=== PATIENT | male | born 1985 | race Caucasian/White ===

== ENCOUNTER 2023-06-15 00:08 | Emergency (ER) | payer SELFPAY ==
[~2023-06-15] VITALS: Ht 172.7 cm; Wt 82.0 kg
[2023-06-15 00:15] VITALS: O2SAT 98
[2023-06-15] MEDS: METOCLOPRAMIDE HCL 10MG/2ML VIAL IV STA (00:33)
[2023-06-15] MEDS: PANTOPRAZOLE SODIUM 40 MG/VIAL IV STA (00:33)
[2023-06-15] MEDS: SODIUM CHLORIDE 0.9% 1,000 ML IV ONE (01:39)
[2023-06-15 01:55] LABS: BASOPHILS % 0.1 % (0.0-2.0); EOSINOPHILS % 0.3 % (0.0-5.0); HEMATOCRIT. 42.8 % (42.0-52.0); LYMPHOCYTES % 15.7 % (20.0-50.0); MEAN CORPUSCULAR HEMOGLOBIN 31.3 pg (28.0-32.0); MEAN CORPUSCULAR HGB CONC 32.6 g/dL (31.0-37.0); MEAN CORPUSCULAR VOLUME 95.9 fL (80.0-94.0); MEAN PLATELET VOLUME 9.1 fl (7.4-10.4); MONOCYTES % 4.8 % (2.0-8.0); NEUTROPHILS % 79.1 % (40.0-76.0); PLATELET 259 x1000/uL (130-400); RED BLOOD CELL COUNT 4.47 mill/uL (4.7-6.1); RED CELL DISTRIBUTION WIDTH 12.3 % (11.6-14.6); WHITE BLOOD COUNT 10.5 x1000/uL (4.5-11.0)
[2023-06-15 02:18] LABS: CHLORIDE 105 mEq/L (98-107); INDEX HEMOLYSI 1 (1-3); INDEX ICTERIC 1 (1-4); INDEX LIPEMIC 1 (1-3); SODIUM 135 mEq/L (136-145)
[2023-06-15 02:26] LABS: ALANINE AMINOTRANSFERASE 21 IU/L (13-61); ALBUMIN 3.9 g/dL (3.4-5.0); ASPARTATE AMINOTRANSFERASE 16 IU/L (15-37); BILIRUBIN TOTAL 0.3 mg/dL (0.1-1.0); CALCIUM 8.7 mg/dL (8.5-10.1); CARBON DIOXIDE 22 mEq/L (21-32); CREATININE 1.3 mg/dL (0.6-1.3); GLUCOSE 146 mg/dL (70-105); PROTEIN TOTAL 7.6 g/dL (6.0-8.3); UREA NITROGEN BLOOD 17 mg/dL (7-21)
[2023-06-15 03:01] LABS: LACTIC ACID 3.2 mmol/L (0.4-2.0)
[2023-06-15 03:11] LABS: ETHANOL BLOOD 292 mg/dL (-10)
[2023-06-15] MEDS ORDERED: ONDA4TAB50 MT (05:24)
[2023-06-15] MEDS ORDERED: FAMO40TA70 MT (05:24)
[2023-06-15 06:30] VITALS: BP 103/61; PULSE 78; RESP 14; TEMP 97.9
== END 2023-06-15 06:47 | disposition home or self-care (01) ==
LOC: ER 00:08
DX: F10.129 Alcohol abuse with intoxication, unspecified (principal); K29.20 Alcoholic gastritis without bleeding; F10.10 Alcohol abuse, uncomplicated; Y90.8 Blood alcohol level of 240 mg/100 ml or more
CPT/HCPCS: 80053; 80320; 83605; 83690; 85025; 36415; 96361; 96374; 96375; 99284; J2765; C9113; J7030; Z7610 ×6; G0480